=== PATIENT | male | born 2000 | race Caucasian/White ===

== ENCOUNTER 2024-02-06 19:32 | Outpatient (REF) | payer BC, OTHER, SELFPAY ==
--- NOTE | ~2024-02-06 | MR_ITS ---
EXAMINATION: MR FOOT WITHOUT CONTRAST, LEFT CLINICAL INFORMATION: Dorsal left foot pain and swelling for 3 weeks following injury. COMPARISON: None available. TECHNIQUE: MRI of the left foot was performed using routine sequences on a high-field scanner. FINDINGS: BONE: Mild edema within the plantar and lateral base of the first metatarsal adjacent to the peroneal longus tendon insertion which could represent an avulsive stress injury. Minimal adjacent marrow edema which could represent a stress reaction or osseous contusion. No acute fracture line. Articular cartilage thinning with small marginal osteophytes at the hallux sesamoids. Edema within the tibial hallux sesamoid which may be degenerative or represent a stress reaction/osseous contusion. No concerning lytic or blastic osseous lesion. MUSCLES/TENDONS: Thickening and increased T2 signal involving the distal 1.7 cm of the peroneal longus tendon, consistent with tendinosis and longitudinal partial tearing. Mild adjacent soft tissue edema which extends distally along the lateral aspect of the first metatarsal. The remaining visualized muscles and tendons are intact. LIGAMENTS: Intact Lisfranc ligament. The plantar plates are intact. SOFT TISSUES: Trace first metatarsophalangeal joint effusion. No soft tissue mass. No forefoot neuroma. MR/MR foot LT wo con IMPRESSION: 1. 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 Edema within the plantar and lateral base of the first metatarsal which could represent an avulsive stress injury. No associated fracture line. 2. 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 3. Trace first metatarsophalangeal joint effusion. Electronically signed by: Malcolm Guallpa MD 02/09/2024 09:12 PM EDT
== END 2024-02-06 19:33 | disposition home or self-care (01) ==
LOC: HO.MRI 19:32
PROVIDERS: PCP Family Medicine; Visit Provider Family Medicine
DX: M79.672 Pain in left foot (principal)
CPT/HCPCS: 73718